=== PATIENT | female | born 1975 | race Caucasian/White ===

== ENCOUNTER → 2021-12-26 | Outpatient (CLI) | payer OTHER ==
--- NOTE | 2021-12-27 13:38 | MM ---
Reason for exam: screening (asymptomatic). Baseline mammogram. History: Took hormonal contraceptives for 12 years. Physical Findings: A clinical breast exam by your physician is recommended on an annual basis and results should be correlated with mammographic findings. MG 3D Screening Mammo W/Cad Bilateral CC and MLO view(s) were taken. The breast tissue is heterogeneously dense. This may lower the sensitivity of mammography. There is no discrete abnormality. ASSESSMENT: Benign, BI-RAD 2 RECOMMENDATION: Routine screening mammogram of both breasts in 1 year.
== END | disposition home or self-care (01) ==
LOC: RADMAMWWP 10:18
PROVIDERS: ATTEND Family Medicine
DX: Z12.31 Encounter for screening mammogram for malignant neoplasm of breast (principal)
CPT/HCPCS: 77063; 77067

== ENCOUNTER → 2023-09-14 | Outpatient (CLI) | payer OTHER ==
--- NOTE | 2023-09-15 21:22 | MM ---
Reason for Exam: Screening (asymptomatic). Last mammogram was performed 1 year(s) and 9 month(s) ago. Patient History: Menarche at age 18. First Full-Term at age 31. Late child-bearing (after 31). Patient used Hormonal Contraceptives for 12 years. Risk Values: Lauren 5 year model risk: 1.1%. NCI Lifetime model risk: 11.6%. Prior Study Comparison: 12/26/2021 Bilateral Screening Mammogram, [facility]. Tissue Density: There are scattered fibroglandular densities. Findings: Analyzed By CAD. There is no suspicious group of microcalcifications or new suspicious mass in either breast. Overall Assessment: Negative, BI-RAD 1 Management: Screening Mammogram of both breasts in 1 year. . Patient should continue monthly self-breast exams. A clinical breast exam by your physician is recommended on an annual basis. This exam should not preclude additional follow-up of suspicious palpable abnormalities. Note on Lauren scores and lifetime risk: 1. A Lauren score greater than 3% is considered moderate risk. If this is the case, consider specialist referral to assess eligibility for a risk reducing agent. 2. If overall lifetime risk for the development of breast cancer is 20% or higher, the patient may qualify for future screening with alternating mammogram and breast MRI. Electronically signed and approved by: Annamarie Fernández M.D. Radiologist
== END | disposition home or self-care (01) ==
LOC: RADMAMWWP 07:11
PROVIDERS: ATTEND Family Medicine
DX: Z12.31 Encounter for screening mammogram for malignant neoplasm of breast (principal)
CPT/HCPCS: 77063; 77067

== ENCOUNTER → 2024-10-31 | Outpatient (CLI) | payer OTHER ==
--- NOTE | 2024-10-31 07:46 | MM ---
Reason for Exam: Clinical finding. Last mammogram was performed 1 year(s) and 2 month(s) ago. Patient History: Menarche at age 18. First Full-Term at age 31. Late child-bearing (after 31). Patient used Hormonal Contraceptives for 12 years. Risk Values: Lauren 5 year model risk: 1.1%. NCI Lifetime model risk: 11.4%. Tissue Density: The breasts are heterogeneously dense, which may obscure small masses. Findings: Analyzed By CAD. No suspicious new focal mass or worrisome cluster of microcalcification in either breast. Overall Assessment: Incomplete: need additional imaging evaluation, BI-RAD 0 Management: Diagnostic Breast Ultrasound of the right breast. Targeted ultrasound right breast, palpable abnormality. Results were given to the patient verbally at the time of exam. Patient should continue monthly self-breast exams. A clinical breast exam by your physician is recommended on an annual basis. This exam should not preclude additional follow-up of suspicious palpable abnormalities. Note on Lauren scores and lifetime risk: 1. A Lauren score greater than 3% is considered moderate risk. If this is the case, consider specialist referral to assess eligibility for a risk reducing agent. 2. If overall lifetime risk for the development of breast cancer is 20% or higher, the patient may qualify for future screening with alternating mammogram and breast MRI. [facility], , 10/31/2024 7:43 AM. Electronically signed and approved by: Wilmer Mcginnis M.D.
--- NOTE | 2024-10-31 08:39 | USB ---
Reason for Exam: Clinical finding. Patient History: Menarche at age 18. First Full-Term at age 31. Late child-bearing (after 31). Perimenopausal. Patient used Hormonal Contraceptives for 12 years. Risk Values: Lauren 5 year model risk: 1.1%. NCI Lifetime model risk: 11.4%. Technique: Method: Targeted. Prior Study Comparison: 12/26/2021 Bilateral Screening Mammogram, [facility]. 09/14/2023 Bilateral MG 3D screening mammo w/cad, [facility]. Findings: The lower section of the breast of the right breast, the axilla of the right breast and the retroareolar of the right breast were scanned. Targeted ultrasound is performed. No solid or cystic masses are identified.. Overall Assessment: Negative, BI-RAD 1 Management: Screening Mammogram of both breasts in 1 year. Management palpable clinically. A clinical breast exam by your physician is recommended on an annual basis and results should be correlated with mammographic findings. This exam should not preclude additional follow-up of suspicious palpable abnormalities. Results were given to the patient verbally at the time of exam. [facility], , 10/31/2024 8:36 AM. Electronically signed and approved by: Wilmer Mcginnis M.D.
== END | disposition home or self-care (01) ==
LOC: RADMAMWWP 07:20
PROVIDERS: ATTEND Family Medicine
DX: N63.10 Unspecified lump in the right breast, unspecified quadrant (principal); R92.333 Mammographic heterogeneous density, bilateral breasts; Z92.0 Personal history of contraception
CPT/HCPCS: 77062; 77066